=== PATIENT | female | born 1965 | race African-American/Black ===

== ENCOUNTER 2024-12-23 05:57 | Inpatient (IN) | payer OTHER ==
[2024-12-23] VITALS (10 sets, daily range): BP systolic 151–189; BP diastolic 75–100; PULSE 89–103; RESP 16–22; TEMP 36.4–36.8; O2SAT 96–99
[~2024-12-23] VITALS: Ht 157.5 cm; Wt 75.3 kg
[2024-12-23] MEDS: IPRATROPIUM BROMIDE (0.02%) 0.5MG/2.5ML NEB HHN STA (06:19)
[2024-12-23] MEDS ORDERED: ALBUTEROL (0.083%) 2.5MG/3ML NEB HHN STA (06:19)
[2024-12-23] MEDS: METHYLPREDNISOLONE SOD SUCC 125MG/2ML (ACT-O-VIAL) IV STA (06:35)
[2024-12-23 07:05] LABS: BASOPHILS % 0.8 % (0.0-2.0); EOSINOPHILS % 0.5 % (0.0-5.0); HEMATOCRIT. 41.1 % (36.0-48.0); LYMPHOCYTES % 14.3 % (20.0-50.0); MEAN CORPUSCULAR HGB CONC 31.5 g/dL (31.0-37.0); MEAN PLATELET VOLUME 9.7 fl (7.4-10.4); MONOCYTES % 5.3 % (2.0-8.0); NEUTROPHILS % 79.1 % (40.0-76.0); PLATELET 320 x1000/uL (130-400); RED BLOOD CELL COUNT 4.47 mill/uL (4.2-5.4); RED CELL DISTRIBUTION WIDTH 14.8 % (11.6-14.6); WHITE BLOOD COUNT 19.5 x1000/uL (4.5-11.0)
[2024-12-23] MEDS ORDERED: ENALAPRIL 2.5MG/2ML VIAL 2ML IV ONE (07:45)
[2024-12-23] MEDS ORDERED: ONDANSETRON HCL 4MG/2ML INJ IV PRN (07:45)
[2024-12-23 07:49] LABS: CARBON DIOXIDE 21 mEq/L (21-32); CHLORIDE 107 mEq/L (98-107); POTASSIUM 4.7 mEq/L (3.5-5.1); SODIUM 141 mEq/L (136-145)
[2024-12-23 07:50] LABS: CALCIUM 9.2 mg/dL (8.7-10.4)
[2024-12-23 07:54] LABS: TROPONIN I HIGH SENSITIVITY 27 ng/L (3.0-34)
[2024-12-23 07:55] LABS: CREATININE 0.9 mg/dL (0.6-1.0); GLUCOSE 188 mg/dL (70-105); UREA NITROGEN BLOOD 18 mg/dL (9-23)
[2024-12-23] MEDS: AMLODIPINE 5MG TABLET PO SCH (08:17)
[2024-12-23] MEDS: FUROSEMIDE 40MG/4ML VIAL IVP ONE (08:19)
[2024-12-23] MEDS: ENALAPRIL 1.25MG/ML VIAL 1ML IV NR (08:20)
[2024-12-23] MEDS: AMLODIPINE 10MG TABLET PO SCH (09:00)
[2024-12-23 09:15] LABS: *AMPHETAMINES SCREEN URINE NEGATIVE (NEGATIVE); *BARBITURATES SCREEN URINE NEGATIVE (NEGATIVE); *BENZODIAZEPINES SCREEN URINE NEGATIVE (NEGATIVE); *COCAINE SCREEN URINE NEGATIVE (NEGATIVE); METHADONE URINE SCREEN NEGATIVE (NEGATIVE)
[2024-12-23 09:16] LABS: CANNABINOID URINE SCREEN PRESUMPTIVE POSITIVE (NEGATIVE); ECSTASY MDMA SCREEN URINE NEGATIVE (NEGATIVE); OPIATES URINE SCREEN NEGATIVE (NEGATIVE); PHENCYCLIDINE URINE SCREEN NEGATIVE (NEGATIVE)
[2024-12-23] MEDS: HYDRALAZINE HCL 50MG TABLET PO SCH (10:28)
[2024-12-23] MEDS: IPRATROPIUM/ALBUTEROL 0.5-3(2.5)MG/3ML NEB HHN SCH (10:34)
[2024-12-23] MEDS: METHYLPREDNISOLONE SOD SUCC 40MG/ML (ACT-O-VIAL) IV SCH (13:41)
[2024-12-23] MEDS: AZITHROMYCIN 500 MG TABLET PO NR (13:41)
[2024-12-23] MEDS: CEFTRIAXONE 1GM/50ML 50 ML IV SCH (15:02)
[2024-12-24] VITALS (8 sets, daily range): BP systolic 144–173; BP diastolic 80–99; PULSE 87–112; RESP 18–20; TEMP 36.2–37; O2SAT 95–100
[2024-12-24] MEDS ORDERED: NALOXONE HCL 0.4MG/ML VIAL IV PRN (00:45)
[2024-12-24] MEDS: CLONIDINE 0.1MG TABLET PO PRN (00:49)
[2024-12-24] MEDS: HYDROCODONE/ACETAMINOPHEN 5/325MG TABLET PO PRN (00:50)
[2024-12-24 07:10] LABS: CARBON DIOXIDE 23 mEq/L (21-32); CHLORIDE 105 mEq/L (98-107); POTASSIUM 3.8 mEq/L (3.5-5.1); SODIUM 139 mEq/L (136-145)
[2024-12-24 07:11] LABS: CALCIUM 10.1 mg/dL (8.7-10.4)
[2024-12-24 07:16] LABS: CREATININE 0.7 mg/dL (0.6-1.0); GLUCOSE 104 mg/dL (70-105); UREA NITROGEN BLOOD 15 mg/dL (9-23)
[2024-12-24] MEDS: AZITHROMYCIN 250 MG TABLET PO SCH (08:18)
[2024-12-24 08:23] LABS: BASOPHILS % 0.7 % (0.0-2.0); EOSINOPHILS % 0.1 % (0.0-5.0); HEMATOCRIT. 39.4 % (36.0-48.0); HEMOGLOBIN. 13.1 g/dL (12.0-16.0); LYMPHOCYTES % 15.3 % (20.0-50.0); MEAN CORPUSCULAR HEMOGLOBIN 29.8 pg (28.0-32.0); MEAN CORPUSCULAR HGB CONC 33.3 g/dL (31.0-37.0); MEAN CORPUSCULAR VOLUME 89.4 fL (81.0-99.0); MEAN PLATELET VOLUME 9.9 fl (7.4-10.4); MONOCYTES % 6.9 % (2.0-8.0); PLATELET 314 x1000/uL (130-400); RED BLOOD CELL COUNT 4.41 mill/uL (4.2-5.4); RED CELL DISTRIBUTION WIDTH 14.6 % (11.6-14.6); WHITE BLOOD COUNT 18.2 x1000/uL (4.5-11.0)
[2024-12-24] MEDS ORDERED: AMLODIPINE 10MG TABLET PO SCH (09:00)
[2024-12-24] MEDS ORDERED: FLUT1DIS3 INH (12:33)
[2024-12-24] MEDS ORDERED: ALBU18HF2 IH (12:33)
[2024-12-24] MEDS ORDERED: P20 MT (12:33)
[2024-12-24] MEDS ORDERED: LEVO750T68 MT (12:33)
[2024-12-25] VITALS (11 sets, daily range): BP systolic 163–180; BP diastolic 75–96; PULSE 56–96; RESP 16–20; TEMP 36.1–36.5; O2SAT 94–100
[2024-12-26 00:03] VITALS: BP 161/88; PULSE 96; RESP 20; TEMP 36.3; O2SAT 100
[2024-12-26 04:00] VITALS: BP 150/92; PULSE 89; RESP 16; TEMP 36.2; O2SAT 99
[2024-12-26 08:08] VITALS: BP 150/92; PULSE 88; RESP 18; TEMP 36.2; O2SAT 99
[2024-12-26 09:34] VITALS: O2SAT 100
[2024-12-26 12:00] VITALS: BP 168/78; PULSE 75; RESP 20; TEMP 36.3; O2SAT 96
== END 2024-12-26 14:10 | disposition home or self-care (01) | DRG 140 ==
LOC: ER 06:01 → 8WST 06:42
PROVIDERS: ADMIT Internal Medicine; ATTEND Internal Medicine
DX: J44.1 Chronic obstructive pulmonary disease with (acute) exacerbation (principal); J96.00 Acute respiratory failure, unspecified whether with hypoxia or hypercapnia; I10 Essential (primary) hypertension; F17.210 Nicotine dependence, cigarettes, uncomplicated; D72.829 Elevated white blood cell count, unspecified; R61 Generalized hyperhidrosis; Z71.6 Tobacco abuse counseling; Z79.899 Other long term (current) drug therapy; Z88.2 Allergy status to sulfonamides
CPT/HCPCS: 36415; 71045; 80048; 80305; 83880; 84484; 85025; 93005; 93306; 94070; 94640; 99285; J0696; J1940; J2919; J2920; J3490